=== PATIENT | female | born 1975 | race Caucasian/White ===

== ENCOUNTER 2021-10-05 15:15 | Emergency (ER) | payer SELFPAY ==
[~2021-10-05] VITALS: Ht 165.1 cm; Wt 91.0 kg
[2021-10-05] MEDS ORDERED: IBUP-2029 PO (15:30)
[2021-10-05] MEDS ORDERED: KETOROLAC 30MG/ML VIAL IV STA (18:24)
[2021-10-05] MEDS ORDERED: ONDANSETRON HCL 4MG/2ML INJ IV STA ×2 (18:24→19:29)
[2021-10-05] MEDS ORDERED: SODIUM CHLORIDE 0.9% 1,000 ML IV ONE (18:30)
[2021-10-05 18:47] LABS: CLARITY URINE CLEAR (CLEAR); COLOR URINE YELLOW (YELLOW); KETONES URINE TRACE (NEGATIVE); LEUKOCYTE ESTERASE URINE NEGATIVE (NEGATIVE); NITRITE URINE NEGATIVE (NEGATIVE); OCCULT BLOOD URINE 1+ (NEGATIVE); PH URINE 5.5 (4.5-8.0); PROTEIN URINE NEGATIVE (NEGATIVE); SPECIFIC GRAVITY URINE 1.021 (1.005-1.030)
[2021-10-05 18:57] LABS: BASOPHILS % 0.2 % (0.0-2.0); EOSINOPHILS % 0.4 % (0.0-5.0); HEMATOCRIT. 42.2 % (36.0-48.0); HEMOGLOBIN. 14.4 g/dL (12.0-16.0); LYMPHOCYTES % 21.3 % (20.0-50.0); MEAN CORPUSCULAR HEMOGLOBIN 33.2 pg (28.0-32.0); MEAN CORPUSCULAR VOLUME 97.2 fL (81.0-99.0); MEAN PLATELET VOLUME 8.3 fl (7.4-10.4); MONOCYTES % 7.6 % (2.0-8.0); NEUTROPHILS % 70.5 % (40.0-76.0); PLATELET 215 x1000/uL (130-400); RED BLOOD CELL COUNT 4.34 mill/uL (4.2-5.4)
[2021-10-05 19:09] LABS: CHLORIDE 107 mEq/L (98-107)
[2021-10-05 19:16] LABS: HCG SCREEN NEGATIVE
[2021-10-05] MEDS ORDERED: MORPHINE SULFATE 4 MG/ML CPJ (NOT FOR IM USE) IV STA (19:29)
[2021-10-05 20:00] VITALS: BP 158/86
[2021-10-05] MEDS ORDERED: TOPUD MT (20:29)
[2021-10-05] MEDS ORDERED: IBUP-2028 MT (20:29)
== END 2021-10-05 21:39 | disposition home or self-care (01) ==
LOC: EDBD 15:15 → ER 15:15
DX: R10.12 Left upper quadrant pain (principal); Z87.19 Personal history of other diseases of the digestive system; Z90.49 Acquired absence of other specified parts of digestive tract
CPT/HCPCS: 36415; 74176; 80053; 81003; 83690; 84703; 85025; 96374; 96375; 96376; 99284; J1885; J2270; J2405; J7030

== ENCOUNTER 2024-02-29 19:56 | Emergency (ER) | payer MEDICAID, OTHER ==
[~2024-02-29] VITALS: Ht 167.6 cm; Wt 67.7 kg
[~2024-02-29 19:56] MED LIST: IBUP-2028 MT; IBUP-2029 PO; TOPUD MT
[2024-02-29 19:58] VITALS: BP 131/63; RESP 19; TEMP 98.6; O2SAT 98
[2024-02-29 19:59] VITALS: PULSE 106; O2SAT 100
== END 2024-02-29 21:00 | disposition left against medical advice (07) ==
LOC: ER 19:56
DX: R07.89 Other chest pain (principal); Z53.21 Procedure and treatment not carried out due to patient leaving prior to being seen by health care provider
CPT/HCPCS: 93005

== ENCOUNTER 2025-01-01 08:03 | Inpatient (IN) | payer MEDICAID ==
[~2025-01-01] VITALS: Ht 167.6 cm; Wt 83.1 kg
[~2025-01-01 08:03] MED LIST changes: +IBUP-1455 PO; -IBUP-2029 PO
[2025-01-01 08:06] VITALS: O2SAT 98
[2025-01-01] MEDS: ONDANSETRON HCL 4MG/2ML INJ IV ONE (08:43)
[2025-01-01] MEDS: MORPHINE SULFATE 4 MG/ML INJ (FOR IV/IM USE) IV ONE ×2 (08:46→09:56)
[2025-01-01 09:03] LABS: BASOPHILS % 0.2 % (0.0-2.0); EOSINOPHILS % 0.8 % (0.0-5.0); HEMATOCRIT. 21.6 % (36.0-48.0); LYMPHOCYTES % 13.7 % (20.0-50.0); MONOCYTES % 7.6 % (2.0-8.0); NEUTROPHILS % 77.7 % (40.0-76.0); RED BLOOD CELL COUNT 2.03 mill/uL (4.2-5.4); RED CELL DISTRIBUTION WIDTH 19.8 % (11.6-14.6)
[2025-01-01 09:11] LABS: HEMOGLOBIN. 7.0 g/dL (12.0-16.0)
[2025-01-01 09:30] LABS: HCG SCREEN NEGATIVE
[2025-01-01] MEDS ORDERED: PANTOPRAZOLE 80 MG in SODIUM CHLORIDE 0.9% 100 ML IV SCH (09:30)
[2025-01-01 09:37] LABS: CREATININE 0.4 mg/dL (0.6-1.0); UREA NITROGEN BLOOD 6 mg/dL (9-23)
[2025-01-01 09:39] LABS: ASPARTATE AMINOTRANSFERASE 152 IU/L (<34); BILIRUBIN DIRECT 1.7 mg/dL (<=3.0); MEAN PLATELET VOLUME 9.5 fl (7.4-10.4); PLATELET 49 x1000/uL (130-400)
[2025-01-01 09:40] LABS: ADD RBC MORPHOLOGY YES; BILIRUBIN TOTAL 4.6 mg/dL (0.1-1.0); PLATELET ESTIMATE MARKEDLY DECREASED; PROTEIN TOTAL 7.6 g/dL (6.0-8.3)
[2025-01-01] MEDS: CEFTRIAXONE 1GM/50ML 50 ML IV ONE (09:43)
[2025-01-01] MEDS: PANTOPRAZOLE SODIUM 40 MG/VIAL IV ONE (09:43)
[2025-01-01] MEDS: OCTREOTIDE 1,000 MCG in SODIUM CHLORIDE 0.9% 98 ML IV ONE (10:30)
[2025-01-01] MEDS: OCTREOTIDE ACETATE 50 MCG/ML 1ML IV SCH (10:30)
[2025-01-01] MEDS: PANTOPRAZOLE SODIUM 40 MG/VIAL IV SCH (12:15)
[2025-01-01] MEDS ORDERED: IPRATROPIUM/ALBUTEROL 0.5-3(2.5)MG/3ML NEB HHN PRN (12:15)
[2025-01-01] MEDS: MVI, ADULT NO.1 10 ML, FOLIC ACID 1 MG, THIAMINE HCL 100 MG in SODIUM CHLORIDE 0.9% 1,0... IV SCH (15:00)
[2025-01-01] MEDS ORDERED: LORAZEPAM 2MG/ML UD SYRINGE IV PRN (16:15)
[2025-01-01] MEDS: MORPHINE SULFATE 2 MG/ML INJ (NOT FOR IM USE) IV PRN (16:22)
[2025-01-01] MEDS: LORAZEPAM 2MG/ML UD SYRINGE IV SCH (16:22)
[2025-01-01 18:30] VITALS: BP 106/51; PULSE 108; RESP 18; TEMP 37.1; O2SAT 98
[2025-01-01] MEDS: SUCRALFATE 1G TABLET PO SCH (19:19)
[2025-01-01 20:00] VITALS: BP 96/54; PULSE 98; RESP 20; TEMP 38.1; O2SAT 100
[2025-01-01] MEDS ORDERED: PANTOPRAZOLE SODIUM 40 MG/VIAL IV SCH (21:00)
[2025-01-01 22:14] LABS: BASOPHILS % 0.5 % (0.0-2.0); EOSINOPHILS % 0.7 % (0.0-5.0); LYMPHOCYTES % 10.7 % (20.0-50.0); MEAN PLATELET VOLUME 8.5 fl (7.4-10.4); MONOCYTES % 7.3 % (2.0-8.0); NEUTROPHILS % 80.8 % (40.0-76.0); RED BLOOD CELL COUNT 2.01 mill/uL (4.2-5.4); RED CELL DISTRIBUTION WIDTH 20.2 % (11.6-14.6)
[2025-01-01 22:18] LABS: INR 1.7
[2025-01-01 22:21] LABS: HEMATOCRIT. 21.0 % (36.0-48.0); HEMOGLOBIN. 7.0 g/dL (12.0-16.0); PLATELET 31 x1000/uL (130-400)
[2025-01-01 22:26] LABS: CREATININE 0.5 mg/dL (0.6-1.0)
[2025-01-01 22:27] LABS: UREA NITROGEN BLOOD 7 mg/dL (9-23)
[2025-01-01 22:28] LABS: ASPARTATE AMINOTRANSFERASE 151 IU/L (<34)
[2025-01-01] MEDS: DOCUSATE SODIUM 100MG CAPSULE PO SCH (22:28)
[2025-01-01] MEDS: SENNOSIDES 8.6MG TABLET PO SCH (22:28)
[2025-01-01 22:29] LABS: BILIRUBIN TOTAL 5.8 mg/dL (0.1-1.0); PROTEIN TOTAL 7.7 g/dL (6.0-8.3)
[2025-01-01 22:38] LABS: FOLIC ACID (FOLATE) SERUM 4.85 ng/mL (>5.38)
[2025-01-01 22:40] LABS: VITAMIN B12 SERUM 419 pg/mL (211-911)
[2025-01-01 23:11] LABS: HEPATITIS A AB IGM NEGATIVE (Negative)
[2025-01-01 23:12] LABS: HEPATITIS B CORE AB IGM NEGATIVE (Negative); HEPATITIS C AB NON REACTIVE (Neg) (Negative)
[2025-01-02] VITALS (15 sets, daily range): BP systolic 96–127; BP diastolic 50–72; PULSE 76–108; RESP 18–20; TEMP 36.7–39; O2SAT 92–99
[2025-01-02] MEDS: MORPHINE SULFATE 4 MG/ML INJ (FOR IV/IM USE) IV PRN (00:26)
[2025-01-02] MEDS: ACETAMINOPHEN 325MG TABLET PO PRN (01:59)
[2025-01-02] MEDS: PIPERACILLIN/TAZO 3.375G/50ML 50 ML IV SCH (06:00)
[2025-01-02] MEDS: PHYTONADIONE 10MG/ML INJ IV SCH (06:10)
[2025-01-02] MEDS: BLOOD SUGAR DIAGNOSTIC STRIP TEST SCH (06:58)
[2025-01-02] MEDS: INSULIN LISPRO 100 UNITS/ML SUBCUT SCH (06:58)
[2025-01-02] MEDS ORDERED: DEXTROSE 50% WATER 50ML SYRINGE IV PRN (07:00)
[2025-01-02 08:29] LABS: INR 1.8
[2025-01-02] MEDS: FOLIC ACID 1MG TABLET PO SCH (08:40)
[2025-01-02 08:41] LABS: BASOPHILS % 0.6 % (0.0-2.0); EOSINOPHILS % 1.5 % (0.0-5.0); LYMPHOCYTES % 11.0 % (20.0-50.0); MEAN PLATELET VOLUME 8.5 fl (7.4-10.4); MONOCYTES % 8.7 % (2.0-8.0); NEUTROPHILS % 78.2 % (40.0-76.0); RED BLOOD CELL COUNT 1.92 mill/uL (4.2-5.4); RED CELL DISTRIBUTION WIDTH 20.4 % (11.6-14.6)
[2025-01-02 08:54] LABS: CREATININE 0.4 mg/dL (0.6-1.0)
[2025-01-02 08:55] LABS: UREA NITROGEN BLOOD 7 mg/dL (9-23)
[2025-01-02] MEDS: ONDANSETRON HCL 4MG/2ML INJ IV PRN (09:07)
[2025-01-02 09:20] LABS: HEMOGLOBIN. 6.6 g/dL (12.0-16.0)
[2025-01-02 09:21] LABS: HEMATOCRIT. 19.8 % (36.0-48.0)
[2025-01-02] MEDS ORDERED: LIDOCAINE HCL 1% 10 MG/ML 10ML VIAL ONE ×2 (12:21→12:27)
[2025-01-02] MEDS ORDERED: METOCLOPRAMIDE HCL 10MG/2ML VIAL ONE (12:21)
[2025-01-02] MEDS ORDERED: DEXAMETHASONE 4MG/ML 1ML VIAL ONE (12:21)
[2025-01-02] MEDS ORDERED: ONDANSETRON HCL 4MG/2ML INJ ONE (12:21)
[2025-01-02] MEDS ORDERED: PROPOFOL 200MG/20ML VIAL IV ONE ×2 (12:22→12:42)
[2025-01-02] MEDS ORDERED: ONDANSETRON HCL 4MG/2ML INJ IV PRN (13:00)
[2025-01-02 17:01] LABS: ASPARTATE AMINOTRANSFERASE 113 IU/L (<34); BILIRUBIN DIRECT 2.3 mg/dL (<=3.0); BILIRUBIN TOTAL 8.0 mg/dL (0.1-1.0); PROTEIN TOTAL 7.2 g/dL (6.0-8.3)
[2025-01-02 19:08] LABS: CLARITY URINE CLEAR (CLEAR); COLOR URINE YELLOW (YELLOW); PH URINE 8.0 (4.5-8.0); PROTEIN URINE NEGATIVE (NEGATIVE); SPECIFIC GRAVITY URINE 1.010 (1.005-1.030)
[2025-01-02 19:09] LABS: GLUCOSE URINE NEGATIVE (NEGATIVE); KETONES URINE TRACE (NEGATIVE); LEUKOCYTE ESTERASE URINE TRACE (NEGATIVE); NITRITE URINE NEGATIVE (NEGATIVE); OCCULT BLOOD URINE TRACE (NEGATIVE); UROBILINOGEN URINE 1.0 E.U./dL (0.2-1.0)
[2025-01-02 19:23] LABS: WBC URINE 0-2 /hpf (0-2)
[2025-01-02 19:24] LABS: BACTERIA URINE NONE SEEN; RBC URINE 0-2 /hpf (0-2); SQUAMOUS EPITHELIAL CELL URINE 1+ /lpf (RARE/1+)
[2025-01-02 20:14] LABS: *AMPHETAMINES SCREEN URINE NEGATIVE (NEGATIVE); *BARBITURATES SCREEN URINE NEGATIVE (NEGATIVE); *BENZODIAZEPINES SCREEN URINE NEGATIVE (NEGATIVE); *COCAINE SCREEN URINE PRESUMPTIVE POSITIVE (NEGATIVE); CANNABINOID URINE SCREEN NEGATIVE (NEGATIVE); ECSTASY MDMA SCREEN URINE NEGATIVE (NEGATIVE); METHADONE URINE SCREEN NEGATIVE (NEGATIVE); OPIATES URINE SCREEN PRESUMPTIVE POSITIVE (NEGATIVE); PHENCYCLIDINE URINE SCREEN NEGATIVE (NEGATIVE)
[2025-01-02] MEDS: CHLORDIAZEPOXIDE 25MG CAPSULE PO SCH (21:50)
[2025-01-03] VITALS (21 sets, daily range): BP systolic 99–121; BP diastolic 35–69; PULSE 72–108; RESP 16–20; TEMP 36.2–37.61412; O2SAT 92–100
[2025-01-03] MEDS: THIAMINE HCL 100MG TABLET PO SCH (09:21)
[2025-01-03 11:13] LABS: BASOPHILS % 0.3 % (0.0-2.0); EOSINOPHILS % 0.5 % (0.0-5.0); LYMPHOCYTES % 17.1 % (20.0-50.0); MEAN PLATELET VOLUME 8.8 fl (7.4-10.4); MONOCYTES % 9.6 % (2.0-8.0); NEUTROPHILS % 72.5 % (40.0-76.0); RED BLOOD CELL COUNT 1.89 mill/uL (4.2-5.4); RED CELL DISTRIBUTION WIDTH 21.0 % (11.6-14.6)
[2025-01-03 11:22] LABS: HEMATOCRIT. 19.0 % (36.0-48.0); HEMOGLOBIN. 6.5 g/dL (12.0-16.0)
[2025-01-03 11:25] LABS: CREATININE 0.6 mg/dL (0.6-1.0); UREA NITROGEN BLOOD 8 mg/dL (9-23)
[2025-01-03 11:27] LABS: ASPARTATE AMINOTRANSFERASE 87 IU/L (<34)
[2025-01-03 11:28] LABS: BILIRUBIN TOTAL 7.8 mg/dL (0.1-1.0); PROTEIN TOTAL 6.9 g/dL (6.0-8.3)
[2025-01-03 11:33] LABS: INR 2.0
[2025-01-03 11:41] LABS: PLATELET 38 x1000/uL (130-400)
[2025-01-03 14:25] LABS: PLATELET 29 x1000/uL (130-400)
[2025-01-04] VITALS (9 sets, daily range): BP systolic 101–114; BP diastolic 53–63; PULSE 88–105; RESP 18–20; TEMP 36.4–37.4; O2SAT 96–100
[2025-01-04 12:48] LABS: INR 1.7
[2025-01-04 12:54] LABS: UREA NITROGEN BLOOD 6 mg/dL (9-23)
[2025-01-04 12:56] LABS: ASPARTATE AMINOTRANSFERASE 76 IU/L (<34)
[2025-01-04 12:57] LABS: BILIRUBIN TOTAL 7.6 mg/dL (0.1-1.0); PROTEIN TOTAL 7.4 g/dL (6.0-8.3)
[2025-01-04 13:02] LABS: BASOPHILS % 0.5 % (0.0-2.0); EOSINOPHILS % 0.7 % (0.0-5.0); LYMPHOCYTES % 15.0 % (20.0-50.0); MEAN PLATELET VOLUME 8.6 fl (7.4-10.4); MONOCYTES % 12.0 % (2.0-8.0); NEUTROPHILS % 71.8 % (40.0-76.0); RED BLOOD CELL COUNT 2.02 mill/uL (4.2-5.4); RED CELL DISTRIBUTION WIDTH 20.5 % (11.6-14.6)
[2025-01-04] MEDS: POTASSIUM CHLORIDE 20MEQ/PACKET PO SCH (13:13)
[2025-01-04] MEDS: LACTULOSE 20G/30ML UDC PO SCH (13:13)
[2025-01-04 13:24] LABS: CREATININE 0.4 mg/dL (0.6-1.0)
[2025-01-04 13:27] LABS: HEMATOCRIT. 19.9 % (36.0-48.0); HEMOGLOBIN. 6.8 g/dL (12.0-16.0)
[2025-01-04 13:28] LABS: PLATELET 47 x1000/uL (130-400)
[2025-01-04] MEDS ORDERED: NALOXONE HCL 0.4MG/ML VIAL IV PRN (15:15)
[2025-01-05] VITALS (10 sets, daily range): BP systolic 91–123; BP diastolic 40–72; PULSE 85–105; RESP 16–19; TEMP 36.1–37.3; O2SAT 96–100
[2025-01-05 14:16] LABS: INR 1.6
[2025-01-05 14:22] LABS: CREATININE 0.6 mg/dL (0.6-1.0)
[2025-01-05 14:23] LABS: UREA NITROGEN BLOOD < 5 mg/dL (9-23)
[2025-01-05 14:24] LABS: ASPARTATE AMINOTRANSFERASE 80 IU/L (<34); BILIRUBIN TOTAL 8.4 mg/dL (0.1-1.0)
[2025-01-05 14:25] LABS: PROTEIN TOTAL 7.3 g/dL (6.0-8.3)
[2025-01-05 14:29] LABS: BASOPHILS % 0.7 % (0.0-2.0); EOSINOPHILS % 0.7 % (0.0-5.0); HEMATOCRIT. 22.6 % (36.0-48.0); HEMOGLOBIN. 7.7 g/dL (12.0-16.0); LYMPHOCYTES % 14.2 % (20.0-50.0); MEAN PLATELET VOLUME 8.8 fl (7.4-10.4); MONOCYTES % 11.6 % (2.0-8.0); NEUTROPHILS % 72.8 % (40.0-76.0); PLATELET 54 x1000/uL (130-400); RED BLOOD CELL COUNT 2.25 mill/uL (4.2-5.4); RED CELL DISTRIBUTION WIDTH 20.1 % (11.6-14.6)
[2025-01-06] VITALS: BP 100/50; PULSE 98; RESP 18; TEMP 36.4; O2SAT 97
[2025-01-06 04:00] VITALS: BP 111/57; PULSE 99; RESP 18; TEMP 36.6; O2SAT 98
[2025-01-06 08:00] VITALS: BP 100/60; PULSE 100; RESP 19; TEMP 36.6; O2SAT 97
[2025-01-06 12:00] VITALS: BP 112/86; PULSE 100; RESP 19; TEMP 36.7; O2SAT 100
[2025-01-06 16:00] VITALS: BP 115/40; PULSE 90; RESP 18; TEMP 36.4; O2SAT 95
[2025-01-06] MEDS: MORPHINE SULFATE 4 MG/ML INJ (FOR IV/IM USE) IV PRN (16:19)
[2025-01-06 20:00] VITALS: BP 104/47; PULSE 89; RESP 19; TEMP 36.8; O2SAT 93
[2025-01-07] VITALS: BP 112/54; PULSE 13; RESP 20; TEMP 36.9; O2SAT 97
[2025-01-07 04:00] VITALS: BP 107/53; PULSE 93; RESP 19; TEMP 37; O2SAT 97
[2025-01-07 08:00] VITALS: BP 112/58; PULSE 96; RESP 20; TEMP 37.2; O2SAT 98
[2025-01-07 08:24] LABS: HEMATOCRIT. 21.7 % (36.0-48.0); HEMOGLOBIN. 7.1 g/dL (12.0-16.0); MEAN PLATELET VOLUME 8.6 fl (7.4-10.4); RED BLOOD CELL COUNT 2.10 mill/uL (4.2-5.4); RED CELL DISTRIBUTION WIDTH 22.7 % (11.6-14.6)
[2025-01-07 08:40] LABS: UREA NITROGEN BLOOD 8 mg/dL (9-23)
[2025-01-07 08:46] LABS: CREATININE 0.3 mg/dL (0.6-1.0)
[2025-01-07 09:18] LABS: PLATELET 51 x1000/uL (130-400)
[2025-01-07 09:20] LABS: BASOPHILS % 1.2 % (0.0-2.0); EOSINOPHILS % 0.8 % (0.0-5.0); LYMPHOCYTES % 16.2 % (20.0-50.0); MONOCYTES % 14.4 % (2.0-8.0); NEUTROPHILS % 67.4 % (40.0-76.0)
[2025-01-07 09:21] LABS: ADD RBC MORPHOLOGY NO
[2025-01-07 12:00] VITALS: BP 110/43; PULSE 94; RESP 20; TEMP 36.1; O2SAT 95
[2025-01-07] MEDS ORDERED: BISACODYL 5MG TABLET PO PRN ×2 (12:45→20:00)
[2025-01-07] MEDS: SORBITOL 70% SOLN 30ML PO NR (13:12)
[2025-01-07] MEDS: METOCLOPRAMIDE HCL 10MG/2ML VIAL IV NR (13:14)
[2025-01-07] MEDS: DEXT 5%/0.45% NACL 1000ML 1,000 ML IV SCH (13:15)
[2025-01-07 16:00] VITALS: BP 100/50; PULSE 99; RESP 20; TEMP 36.1; O2SAT 97
[2025-01-07 20:00] VITALS: BP 103/53; PULSE 101; RESP 18; TEMP 36.8; O2SAT 96
[2025-01-07] MEDS: METOCLOPRAMIDE HCL 10MG/2ML VIAL IV SCH (21:02)
[2025-01-07] MEDS: SORBITOL 70% SOLN 30ML PO SCH (21:11)
[2025-01-08] VITALS (8 sets, daily range): BP systolic 94–120; BP diastolic 39–65; PULSE 88–104; RESP 16–20; TEMP 36.5–38; O2SAT 95–98
[2025-01-08] MEDS ORDERED: PANT40TA51 PO (02:11)
[2025-01-08] MEDS ORDERED: LISI-652 MT (02:21)
[2025-01-08] MEDS ORDERED: HYDR-4009 MT (02:21)
[2025-01-08] MEDS ORDERED: ONDA4TAB50 PO (02:21)
[2025-01-08] MEDS ORDERED: ROSU40TA PO (02:21)
[2025-01-08] MEDS: NA PHOS,M-B/NA PHOS,DI-BA ENEMA 118ML PR SCH ×2 (06:00→10:49)
[2025-01-08 07:01] LABS: HEMATOCRIT. 21.2 % (36.0-48.0); MEAN PLATELET VOLUME 8.8 fl (7.4-10.4); RED BLOOD CELL COUNT 2.05 mill/uL (4.2-5.4); RED CELL DISTRIBUTION WIDTH 23.0 % (11.6-14.6)
[2025-01-08 07:17] LABS: UREA NITROGEN BLOOD 7 mg/dL (9-23)
[2025-01-08 07:19] LABS: ASPARTATE AMINOTRANSFERASE 67 IU/L (<34); BILIRUBIN TOTAL 8.1 mg/dL (0.1-1.0); PROTEIN TOTAL 6.4 g/dL (6.0-8.3)
[2025-01-08 07:49] LABS: HEMOGLOBIN. 7.0 g/dL (12.0-16.0)
[2025-01-08 07:50] LABS: CREATININE 0.4 mg/dL (0.6-1.0); PLATELET 50 x1000/uL (130-400)
[2025-01-08 08:02] LABS: INR 1.6
[2025-01-08] MEDS ORDERED: PROPOFOL 200MG/20ML VIAL IV ONE ×2 (12:44→13:56)
[2025-01-08 16:49] LABS: LYMPHOCYTES % MANUAL 13.0 % (20.0-60.0); METAMYELOCYTES % 1.0 % (0-0); MONOCYTES % MANUAL 3.0 % (2.0-8.0); MYELOCYTES % 1.0 % (0-0); NEUTROPHILS % MANUAL 82.0 % (45.0-75.0); PLATELET ESTIMATE DECREASED
[2025-01-09] VITALS (9 sets, daily range): BP systolic 98–126; BP diastolic 44–66; PULSE 88–104; RESP 15–20; TEMP 36.4–37.11408; O2SAT 94–98
[2025-01-09 08:54] LABS: CREATININE 0.4 mg/dL (0.6-1.0); UREA NITROGEN BLOOD 5 mg/dL (9-23)
[2025-01-09 09:05] LABS: MEAN PLATELET VOLUME 8.9 fl (7.4-10.4); PLATELET 55 x1000/uL (130-400); RED BLOOD CELL COUNT 1.94 mill/uL (4.2-5.4); RED CELL DISTRIBUTION WIDTH 23.0 % (11.6-14.6)
[2025-01-09 09:15] LABS: HEMATOCRIT. 20.3 % (36.0-48.0); HEMOGLOBIN. 6.8 g/dL (12.0-16.0)
[2025-01-09 22:45] LABS: BAND% 1.0 % (1.0-6.0); EOSINOPHILS % MANUAL 1.0 % (0.0-5.0); LYMPHOCYTES % MANUAL 6.0 % (20.0-60.0); MONOCYTES % MANUAL 20.0 % (2.0-8.0); NEUTROPHILS % MANUAL 72.0 % (45.0-75.0)
[2025-01-09 22:46] LABS: PLATELET ESTIMATE DECREASED
[2025-01-10 00:30] VITALS: BP_SYST 100; BP_SYST 105; BP_DIAS 49; BP_DIAS 60; PULSE 100; PULSE 93; RESP 18; TEMP 36.6; TEMP 36.7; O2SAT 100
[2025-01-10 04:00] VITALS: BP 101/49; PULSE 92; RESP 19; TEMP 36.7; O2SAT 95
[2025-01-10 06:35] LABS: HEMATOCRIT. 21.9 % (36.0-48.0); HEMOGLOBIN. 7.4 g/dL (12.0-16.0); MEAN PLATELET VOLUME 9.0 fl (7.4-10.4); PLATELET 57 x1000/uL (130-400); RED BLOOD CELL COUNT 2.11 mill/uL (4.2-5.4); RED CELL DISTRIBUTION WIDTH 24.8 % (11.6-14.6)
[2025-01-10 06:44] LABS: INR 1.7
[2025-01-10 07:16] LABS: CREATININE 0.4 mg/dL (0.6-1.0)
[2025-01-10 07:17] LABS: ASPARTATE AMINOTRANSFERASE 61 IU/L (<34); UREA NITROGEN BLOOD < 5 mg/dL (9-23)
[2025-01-10 07:18] LABS: BILIRUBIN DIRECT 2.0 mg/dL (<=3.0); BILIRUBIN TOTAL 8.2 mg/dL (0.1-1.0)
[2025-01-10 07:19] LABS: PROTEIN TOTAL 6.4 g/dL (6.0-8.3)
[2025-01-10 08:26] VITALS: BP 118/62; PULSE 88; RESP 18; TEMP 36.3; O2SAT 100
[2025-01-10 12:30] VITALS: BP 116/46; PULSE 86; RESP 18; TEMP 37.1
[2025-01-10 16:30] VITALS: BP 116/46; PULSE 86; RESP 18; TEMP 36.8; O2SAT 96
[2025-01-10 17:07] LABS: LYMPHOCYTES % MANUAL 18.0 % (20.0-60.0); MONOCYTES % MANUAL 20.0 % (2.0-8.0); NEUTROPHILS % MANUAL 62.0 % (45.0-75.0); PLATELET ESTIMATE DECREASED
[2025-01-10 20:00] VITALS: BP 110/51; PULSE 68; RESP 19; TEMP 36.7; O2SAT 100
[2025-01-11] VITALS: BP 116/60; PULSE 82; RESP 20; TEMP 36.9; O2SAT 96
[2025-01-11 04:00] VITALS: BP 120/72; PULSE 75; RESP 18; TEMP 36.8; O2SAT 99
[2025-01-11 08:00] VITALS: BP 100/45; PULSE 94; RESP 18; TEMP 35.9; O2SAT 99
[2025-01-11 12:06] VITALS: BP 124/60; PULSE 92; RESP 20; TEMP 37.7; O2SAT 98
[2025-01-11 15:58] LABS: HEMATOCRIT. 22.3 % (36.0-48.0); HEMOGLOBIN. 7.5 g/dL (12.0-16.0); MEAN PLATELET VOLUME 8.6 fl (7.4-10.4); PLATELET 68 x1000/uL (130-400); RED BLOOD CELL COUNT 2.16 mill/uL (4.2-5.4); RED CELL DISTRIBUTION WIDTH 25.2 % (11.6-14.6)
[2025-01-11 16:11] LABS: INR 1.8
[2025-01-11 16:13] LABS: CREATININE 0.5 mg/dL (0.6-1.0); UREA NITROGEN BLOOD 6 mg/dL (9-23)
[2025-01-11 16:15] LABS: ASPARTATE AMINOTRANSFERASE 56 IU/L (<34); BILIRUBIN DIRECT 2.1 mg/dL (<=3.0); PHOSPHORUS 3.7 mg/dL (2.5-4.9)
[2025-01-11 16:16] LABS: BILIRUBIN TOTAL 8.6 mg/dL (0.1-1.0); PROTEIN TOTAL 6.6 g/dL (6.0-8.3)
[2025-01-11] MEDS ORDERED: LACT-390 MT (16:23)
[2025-01-11] MEDS ORDERED: PROT40 MT (16:23)
[2025-01-11] MEDS ORDERED: SUCR1TAB30 MT (16:23)
[2025-01-11] MEDS ORDERED: SENN-371 MT (16:23)
[2025-01-11 16:30] VITALS: BP 140/82; PULSE 82; RESP 18; TEMP 36.4; O2SAT 100
[2025-01-11 16:38] LABS: BAND% 1.0 % (1.0-6.0); LYMPHOCYTES % MANUAL 6.0 % (20.0-60.0); MONOCYTES % MANUAL 20.0 % (2.0-8.0); NEUTROPHILS % MANUAL 73.0 % (45.0-75.0); PLATELET ESTIMATE DECREASED
[2025-01-11 16:45] VITALS: BP 140/82; PULSE 82; RESP 20; TEMP 98.8
[2025-01-11] MEDS: ALPRAZOLAM 0.25 MG TABLET PO SCH (17:15)
== END 2025-01-11 18:25 | disposition home or self-care (01) | DRG 241 ==
LOC: ER 08:15 → ENRESERV 13:24 → CANRESERV 13:24 → EDBEDREQSVC 15:02 → 8WST 17:19
PROVIDERS: ADMIT Internal Medicine; ATTEND Internal Medicine
PROC: 30233N1 Transfusion of Nonautologous Red Blood Cells into Peripheral Vein, Percutaneous Approach (ICD-10-PCS; principal; 2025-01-01)
PROC: 0DB78ZX Excision of Stomach, Pylorus, Via Natural or Artificial Opening Endoscopic, Diagnostic (ICD-10-PCS; 2025-01-02)
PROC: 30233K1 Transfusion of Nonautologous Frozen Plasma into Peripheral Vein, Percutaneous Approach (ICD-10-PCS; 2025-01-02)
PROC: 6A551Z2 Pheresis of Platelets, Multiple (ICD-10-PCS; 2025-01-02)
PROC: 0DJD8ZZ Inspection of Lower Intestinal Tract, Via Natural or Artificial Opening Endoscopic (ICD-10-PCS; 2025-01-08)
DX: K29.61 Other gastritis with bleeding (principal); E72.20 Disorder of urea cycle metabolism, unspecified; D69.6 Thrombocytopenia, unspecified; D68.9 Coagulation defect, unspecified; R16.2 Hepatomegaly with splenomegaly, not elsewhere classified; K76.6 Portal hypertension; D53.9 Nutritional anemia, unspecified; F32.A Depression, unspecified; F10.20 Alcohol dependence, uncomplicated; S30.0XXA Contusion of lower back and pelvis, initial encounter; K70.30 Alcoholic cirrhosis of liver without ascites; E53.8 Deficiency of other specified B group vitamins; F41.9 Anxiety disorder, unspecified; Y90.0 Blood alcohol level of less than 20 mg/100 ml; K59.00 Constipation, unspecified; F17.210 Nicotine dependence, cigarettes, uncomplicated; K64.8 Other hemorrhoids; K63.9 Disease of intestine, unspecified; Z98.84 Bariatric surgery status; Z71.41 Alcohol abuse counseling and surveillance of alcoholic; Z90.49 Acquired absence of other specified parts of digestive tract; E80.6 Other disorders of bilirubin metabolism; R58 Hemorrhage, not elsewhere classified; W18.39XA Other fall on same level, initial encounter; Y93.89 Activity, other specified; Y92.89 Other specified places as the place of occurrence of the external cause; Y99.8 Other external cause status
CPT/HCPCS: 36415; 72192; 73700; 74176; 76700; 80048; 80053; 80076; 80305; 80320; 81003; 82105; 82140; 82607; 82728; 82746; 82962; 82977; 83540; 83550; 83735; 84100; 84145; 84703; 85014; 85018; 85025; 85044; 85049; 86705; 86709; 86850; 86900; 86920; 86927; 87340; 88305; 88312; 88313; 97162; 97530; 99291; A4606; J0696; J1100; J1815; J2003; J2060; J2270; J2354; J2405; J2470; J2543; J2704; J2765; J3411; J3430; J3490; J7030; J7050; P9016; P9017; P9034; G0480